=== PATIENT | female | born 1950 | race Two or more races ===

== ENCOUNTER 2024-10-15 13:56 | Emergency (ER) | payer OTHER ==
[~2024-10-15] VITALS: Ht 162.6 cm; Wt 90.7 kg
[2024-10-15] MEDS ORDERED: LIPITOR20 MG PO (14:03)
[2024-10-15] MEDS ORDERED: LOSARTAN-HCTZ1 EAC2 PO (14:03)
[2024-10-15] MEDS ORDERED: ORPHENADRINE CITRATE 30 MG/ML AMPUL IM ONE (14:45)
[2024-10-15] MEDS ORDERED: KETOROLAC TROMETHAMINE 30 MG VIAL IM ONE (14:45)
[2024-10-15] MEDS ORDERED: NEURONTIN300 MG PO (14:55)
== END 2024-10-15 16:02 ==
LOC: ER 13:56
DX: M79.604 Pain in right leg (principal); M54.50 Low back pain, unspecified; I10 Essential (primary) hypertension; E11.9 Type 2 diabetes mellitus without complications; Z88.0 Allergy status to penicillin
CPT/HCPCS: 96372; 99282; J1885; J2360